=== PATIENT | female | born 1985 | race African-American/Black ===

== ENCOUNTER 2023-01-31 13:52 | Emergency (ER) | payer BC, SELFPAY ==
[2023-01-31 14:08] VITALS: BP 92/58; PULSE 110; RESP 16; TEMP 37.4; O2SAT 99
--- NOTE | 2023-01-31 16:00 | ED.URI ---
HPI - URI/Sore Throat General Chief Complaint: Upper Respiratory Infection Stated Complaint: sore throat Time Seen by Provider: 01/31/23 16:00 Source: patient Mode of arrival: ambulatory Limitations: no limitations History of Present Illness HPI Narrative: 37-year-old female presents with complaint of sore throat for 3 days. Getting progressively worse. Reports she also had cough congestion that started 5 days ago but sore throat is her worst symptoms. Thinks that she had a fever last night had sweats and chills. Fatigue today. Patient works at [employer] , has had strep exposure. All systems reviewed and negative except as noted above. Related Data Home Medications Medication Instructions Recorded Confirmed norgestimate 0.25 mg-ethinyl 1 tablet PO DAILY 01/31/23 01/31/23 estradiol 35 mcg tablet (Estarylla) Allergies Allergy/AdvReac Type Severity Reaction Status Date / Time No Known Allergies Allergy Verified 01/31/23 15:38 Review of Systems Review of Systems: CONSTITUTIONAL: Denies fever, chills, or sweats. reports fatigue. EYES: Denies visual changes, redness, or discharge. ENT: Reports rhinorrhea, congestion, sore throat. Denies otalgia. CARDIOVASCULAR: Denies chest pain, palpitations, or edema. RESPIRATORY: Reports cough. Denies dyspnea. GASTROINTESTINAL: Denies abdominal pain, nausea, vomiting, or diarrhea. GENITOURINARY: Denies dysuria or hematuria. SKIN: Denies rash or itching. MUSCULOSKELETAL: Denies back pain, joint pain, or myalgia. NEUROLOGIC: Denies headache, numbness, or weakness. PSYCHIATRIC: Denies anxiety or depression. All other systems reviewed are negative, except as documented in HPI. PMFSH Comments At time of signature, agree with nursing past medical, surgical, social and family history. There is no relevant family history pertinent to the presenting complaint. Exam Narrative: GENERAL: This is a well-nourished, well-developed patient, in no apparent distress. HEAD: normocephalic, atraumatic. EYES: PERRL. Sclera clear/white. Vision is grossly intact. EARS: External ears normal, auditory canals clear and without drainage, TMs normal without perforation. Hearing grossly intact. NOSE: External nose normal with Mild congestion, clear nasal drainage with erythema to bilateral nares. THROAT: Mucous membranes moist, erythema with swelling, exudates tonsils 1+ bilaterally. NECK: Neck supple, non-tender without lymphadenopathy, masses or thyromegaly. CARDIOVASCULAR: Regular rate and rhythm without murmurs, gallops, or rubs. RESPIRATORY: Clear to auscultation. Breath sounds equal bilaterally. No wheezes, rales, or rhonchi. SKIN: warm, Dry, intact with no suspicious lesions or rash, good texture and turgor. NEURO: awake, alert, and oriented to person, place and time. There were no obvious focal neurologic abnormalities. EXTREMITIES: No joint tenderness, effusion, or edema noted. Course Course Level of Care: Express Care Visit Vital Signs Vital signs: Vital Signs Temperature 37.4 C 01/31/23 14:08 Pulse Rate 110 H 01/31/23 14:08 Respiratory Rate 16 01/31/23 14:08 Blood Pressure 92/58 L 01/31/23 14:08 Pulse Oximetry 99 01/31/23 14:08 Oxygen Delivery Room Air 01/31/23 14:08 Temperature 37.4 C 01/31/23 14:08 Pulse Rate 110 H 01/31/23 14:08 Respiratory Rate 16 01/31/23 14:08 Blood Pressure 92/58 L 01/31/23 14:08 Pulse Oximetry 99 01/31/23 14:08 Oxygen Delivery Room Air 01/31/23 14:08 Reviewed MDM - URI/Sore Throat MDM Narrative Medical decision making narrative: negative rapid strep. Will treat with antibiotics due to exam findings. Patient is aware of diagnosis, understands and agrees to treatment plan. Anticipatory guidance given. Patient agrees to follow-up as directed and is aware of reasons to seek care at the emergency department. Portions of this record may have been created with voice recognition software
== END 2023-01-31 16:11 | disposition home or self-care (01) ==
PROVIDERS: Emergency Provider Nurse Practitioner Family
DX: J02.9 Acute pharyngitis, unspecified (principal)
CPT/HCPCS: 87081; 87880; 99213; G0463

== ENCOUNTER 2023-06-01 15:12 | Outpatient (CLI) | payer BC, SELFPAY ==
--- NOTE | ~2023-06-01 | US_ITS ---
EXAMINATION: US pelvic complete w TV DATE: 06/01/2023 17:36 INDICATION: RIGHT GROIN PAIN, PELVIC PAIN X 1 MONTH TECHNIQUE: Multiple transabdominal and endovaginal sonographic images of the pelvis were obtained. LM P reportedly 06/01/2023. COMPARISON: None. FINDINGS: Uterus: 11.1 x 7.2 x 7.0 cm. Multiple heterogeneous partially shadowing and partially circumscribed m yometrial lesions, likely fibroids, largest measures 2.6 cm. Endometrial complex is partially shadowe d by the fibroids and may measure up to 17 mm. Right Ovary: 3.5 x 1.4 x 2.9 cm. Vascular flow is present. 1.8 cm simple cyst or dominant follicle. Left Ovary: 2.2 x 1.6 x 2.8 cm. Vascular flow is present. No adnexal mass There is no free fluid in the pelvis. IMPRESSION: Multiple intramural fibroids measuring up to 2.6 cm. Suboptimal visualization of the endometrium which may measure up to 17 mm. This may be due to menstru al blood, given the stage of menstrual cycle. Consideration could be given to repeat pelvic ultrasoun d imaging at 5-11 of cycle, although the fibroids will likely obscure complete visualization. Sonohys terography or pelvic MR could be helpful for problem solving this case. Reviewed, dictated and finalized at location [facility]. IMPRESSION: Multiple intramural fibroids measuring up to 2.6 cm. Suboptimal visualization of the endometrium which may measure up to 17 mm. This may be due to menstrual blood, given the stage of menstrual cycle. Considerati on could be given to repeat pelvic ultrasound imaging at 5-11 of cycle, althoug h the fibroids will likely obscure complete visualization. Sonohysterography or pelvic MR could be helpful for problem solving this case.
== END 2023-06-01 15:13 | disposition home or self-care (01) ==
PROVIDERS: Visit Provider Internal Medicine
DX: R10.31 Right lower quadrant pain (principal); D25.9 Leiomyoma of uterus, unspecified
CPT/HCPCS: 76830; 76856